=== PATIENT | female | born 1995 | race African-American/Black ===

== ENCOUNTER 2019-02-26 16:28 | Emergency (ER) | payer OTHER ==
[~2019-02-26] VITALS: Ht 165.1 cm; Wt 63.5 kg
[2019-02-26 16:33] VITALS: BP 121/77
--- NOTE | 2019-02-26 16:40 | NUR ---
PT WALKED TO LOBBY TO WAIT FOR BED.
--- NOTE | 2019-02-26 17:10 | NUR ---
PATIENT AMBULATED TO ER BED 3.
--- NOTE | 2019-02-26 17:13 | NUR ---
Patient ambulated to bed 3. RN evaluating patient at bedside.
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
--- NOTE | 2019-02-26 17:48 | NUR ---
Dr. Power evaluating patient at bedside.
--- NOTE | 2019-02-26 18:10 | NUR ---
medical technician at bedside.
[2019-02-26] MEDS ORDERED: traMADol 50 MG TAB PO ONE (18:20)
[2019-02-26] MEDS ORDERED: IBUPROFEN 600 MG TAB PO ONE (18:20)
[2019-02-26] MEDS ORDERED: NEOMYCIN/POLYMYXIN/BACITRACIN 0.9 GM/1 PKT TP ONE (18:20)
[2019-02-26 18:33] LABS: BARBITURATE, URINE NEG. ng/ml (NEG <=200); BENZODIAZEPINE, URINE NEG. ng/mL (NEG <=200); CANNABINOID, URINE NEG. ng/mL (NEG <=50); COCAINE, URINE NEG. ng/mL (NEG <=300); OPIATE, URINE NEG. ng/mL (NEG <=2000); PHENCYCLIDINE SCREEN,URINE NEG. ng/mL (NEG <=25)
--- NOTE | 2019-02-26 18:49 | NUR ---
PT REFUSES DOING COMPUTED TOMOGRAPHY SCAN P[facility]. DR. ARTHUR NOTIFIED.
[2019-02-26 18:51] LABS: APPEARANCE,URINE CLEAR (CLEAR); BILIRUBIN,URINE NEGATIVE (NEGATIVE); BLOOD, URINE NEGATIVE (NEGATIVE); COLOR,URINE YELLOW (YELLOW); LEUKOCYTE ESTERASE ,URINE NEGATIVE (NEGATIVE); NITRITE, URINE NEGATIVE (NEGATIVE); PH,URINE 7.5 (5.0-9.0); UGLUCOSE NEGATIVE (NEGATIVE)
--- NOTE | 2019-02-26 19:35 | NUR ---
PT DENIED CRUTCHES, SPLINT. ER MADE AWARE OF STATUS
[2019-02-26 19:36] VITALS: BP 118/74
--- NOTE | 2019-02-26 19:36 | NUR ---
Patient discharged with v/s stable. Written and verbal after care instructions given and explained. Patient alert, oriented and verbalized understanding of instructions. Ambulatory with steady gait. All questions addressed prior to discharge. ID band removed. Patient advised to follow up with PMD. Rx of VOLTAREN WAS given. Patient educated on indication of medication including possible reaction and side effects. Opportunity to ask questions provided and answered. PT STATED HER PAIN LEVEL HAD DECREASED TO LEVEL 3/10 PRIOR TO D/C
== END 2019-02-26 19:36 | disposition home or self-care (01) ==
LOC: MED 16:28
DX: S30.0XXA Contusion of lower back and pelvis, initial encounter (principal); S90.212A Contusion of left great toe with damage to nail, initial encounter; W17.89XA Other fall from one level to another, initial encounter; Y93.41 Activity, dancing; Y92.89 Other specified places as the place of occurrence of the external cause; Y99.8 Other external cause status
CPT/HCPCS: 73660; 80305; 81003; 81025; 99284; Q0092